=== PATIENT | female | born 1995 | race Caucasian/White ===

== ENCOUNTER 2017-03-13 20:09 | Emergency (ER) | payer BC ==
--- NOTE | ~2017-03-13 | CT4 ---
[facility] A Service of [facility] & [facility] RADIOLOGY TEXT RESULTS PATIENT: BRYANT HOPE LOCATION: SED : [birth year] UNIT #: [id number] AGE: [address]: LINDA GARCIA SEX: F ORDER DR: [id number] [address] [address] [id number] E MR#: [id number] Acc #: [id number] NAME: BRYANT HOPE : 1995 SEX: F STUDY DATE/TIME: 03/13/2017 21:48 UNIT: SED ROOM: STUDY DESCRIPTION: CT Abd and Pelv Wo Cont Attending Physician: Tony Garcia Ordering Physician: Tony Garcia Primary Care Physician: Jes Garza M.D. MEDICAL IMAGING REPORT This report is preliminary unless electronic signature is present. EXAM CT abdomen and pelvis, 03/13/2017. INDICATIONS Back spasms and abdominal pain for 1 week. Nausea. TECHNIQUE Axial noncontrast images were obtained through the abdomen and pelvis. Multiplanar reformats were obtained. Comparison is made with 11/06/12. This CT exam was performed with one or more of the following radiation dose reduction techniques: automatic exposure control, adjustment of mA and/or kV according to patient size, and iterative reconstruction. FINDINGS ABDOMEN: Lung bases are clear. Gallbladder is contracted. No renal or ureteral stones are seen. No hydronephrosis. Unenhanced solid organs are normal. The unopacified GI tract is normal. There is no free fluid. PELVIS: There are no lower ureteral stones. The bladder is normal. Solid pelvic organs are normal. The appendix is normal, as is the remainder of the unopacified GI tract. IMPRESSION 1. No acute findings in the abdomen or pelvis 2. No renal or ureteral stones. No hydronephrosis. 3. Normal unopacified GI tract, including the appendix. Dictated by... Matthew Fuentes Jr., M.D. THIS IS AN ELECTRONICALLY VERIFIED REPORT Matthew Fuentes Jr., M.D. at 03/14/2017 10:14 AM [facility] A Service of [facility] & [facility] RADIOLOGY TEXT RESULTS PATIENT: BRYANT HOPE LOCATION: SED : [birth year] UNIT #: [id number] AGE: [address]: LINDA GARCIA SEX: F ORDER DR: Sonia TD: 03/13/2017 22:52 JOB #: [id number] MEDICAL IMAGING REPORT Page 1 of 1
[~2017-03-13 20:09] MED LIST: ACETAMINOPHEN; BACTRIM DS TABL1 TA1 PO; HYDROCODON-ACE1 EAC7 PO; NO MEDICATIONS; PRENATAL1 TA1 PO; ZOFRAN PO
[2017-03-13] MEDS ORDERED: BIRTH CONTROL PILL (20:29)
[2017-03-13 20:53] LABS: BASOPHIL# 0.1 X10e3 (0-0.3); BASOPHIL% 0.7 % (0-2.5); EOSINOPHIL# 0.2 X10e3 (0-0.7); EOSINOPHIL% 2.4 % (0.0-7.0); HEMATOCRIT 37.4 % (35.0-45.0); HEMOGLOBIN 12.2 gm/dL (12.0-16.0); LYMPHOCYTE# 2.2 X10e3 (1.0-3.5); LYMPHOCYTE% 32.4 % (17.0-45.0); MEAN CORPUSCULAR HEMOGLOBIN 26.9 PG (28-34); MEAN CORPUSCULAR HGB CONC 32.8 g/dL (30-36); MEAN PLATELET VOLUME 8.8 FL (6.5-11.5); MONOCYTE# 0.6 X10e3 (0-1.0); MONOCYTE% 8.8 % (3.0-12.0); NEUTROPHIL# 3.8 X10e3 (1.5-7.1); NEUTROPHIL% 55.7 % (40-75); PLATELET COUNT 279 X10e3 (140-420); RED BLOOD COUNT 4.56 X10e (3.90-5.30); RED CELL DISTRIBUTION WIDTH 14.6 % (11.0-15.5); WHITE BLOOD COUNT 6.9 X10e3 (4.0-10.5)
[2017-03-13 20:54] LABS: DIFF IND NO
[2017-03-13 21:24] LABS: ALBUMIN SERUM 3.3 g/dL (3.5-5.0); ALKALINE PHOSPHATASE 59 U/L (32-92); ALT (SGPT) 17 U/L (10-40); AST (SGOT) 20 U/L (10-42); BILIRUBIN, DIRECT <0.1 mg/dL (0.0-0.2); BILIRUBIN,TOTAL <0.1 mg/dL (0.2-2.0); BLOOD UREA NITROGEN 6 mg/dL (9-23); BUN/CREATININE RATIO 8.57; CALCIUM SERUM 8.7 mg/dL (8.4-10.2); CARBON DIOXIDE 25 mmol/L (22-31); CHLORIDE 106 mmol/L (100-111); CREATININE SERUM 0.7 mg/dL (0.6-1.4); GLOM FILT RATE Estimated 122.1 mL/min (>60); GLUCOSE FASTING 91 mg/dL (70-110); LIPASE 38 U/L (22-51); POTASSIUM 3.8 mmol/L (3.5-5.1); PROTEIN TOTAL SERUM 6.9 g/dL (6.0-8.3); SODIUM 136 mmol/L (135-145)
[2017-03-13 21:35] LABS: URINE SOURCE CLEAN CATCH
[2017-03-13 21:38] LABS: URINE APPEARANCE CLEAR; URINE BILIRUBIN NEG (NEG); URINE BLOOD NEG (NEG); URINE COLOR YELLOW; URINE GLUCOSE NEG (NORM); URINE KETONE NEG (NEG); URINE LEUKOCYTE ESTERASE NEG (NEG); URINE NITRATE NEG (NEG); URINE PROTEIN NEG (NEG); URINE UROBILINOGEN 0.2 MG/DL (NORM)
[2017-03-13 22:02] LABS: MICRO INDICATED? NO
== END 2017-03-13 22:25 | disposition home or self-care (01) ==
LOC: SED 20:09
PROVIDERS: Physician Assistant
DX: R10.13 Epigastric pain (principal); R11.0 Nausea
CPT/HCPCS: 36415; 74176; 80048; 80076; 81003; 83690; 84703; 85025; 96361; 96374; 99284; J2405

== ENCOUNTER 2017-06-11 22:23 | Emergency (ER) | payer BC ==
[~2017-06-11] VITALS: Ht 165.1 cm; Wt 75.7 kg
[~2017-06-11 22:23] MED LIST changes: +BIRTH CONTROL PILL
== END 2017-06-11 23:35 | disposition home or self-care (01) ==
LOC: SED 22:23
DX: K21.9 Gastro-esophageal reflux disease without esophagitis (principal)
CPT/HCPCS: 84703; 99284

== ENCOUNTER 2017-06-12 22:38 | Emergency (ER) | payer BC ==
[~2017-06-12] VITALS: Ht 165.1 cm; Wt 75.7 kg
[2017-06-12 23:19] LABS: BASOPHIL# 0.1 X10e3 (0-0.3); BASOPHIL% 0.7 % (0-2.5); DIFF IND NO; EOSINOPHIL# 0.1 X10e3 (0-0.7); HEMATOCRIT 35.6 % (35.0-45.0); HEMOGLOBIN 11.7 gm/dL (12.0-16.0); LYMPHOCYTE# 2.4 X10e3 (1.0-3.5); LYMPHOCYTE% 24.1 % (17.0-45.0); MEAN CELL VOLUME 85.2 FL (83-96); MEAN CORPUSCULAR HEMOGLOBIN 27.9 PG (28-34); MEAN CORPUSCULAR HGB CONC 32.8 g/dL (30-36); MONOCYTE# 0.6 X10e3 (0-1.0); NEUTROPHIL# 6.7 X10e3 (1.5-7.1); NEUTROPHIL% 68.2 % (40-75); PLATELET COUNT 247 X10e3 (140-420); RED BLOOD COUNT 4.18 X10e (3.90-5.30); RED CELL DISTRIBUTION WIDTH 15.3 % (11.0-15.5); WHITE BLOOD COUNT 9.8 X10e3 (4.0-10.5)
[2017-06-12 23:38] LABS: ALBUMIN SERUM 3.4 g/dL (3.5-5.0); ALKALINE PHOSPHATASE 56 U/L (32-92); ALT (SGPT) 33 U/L (10-40); AMYLASE 37 U/L (0-46); AST (SGOT) 24 U/L (10-42); BILIRUBIN,TOTAL 0.3 mg/dL (0.2-2.0); BLOOD UREA NITROGEN 11 mg/dL (9-23); BUN/CREATININE RATIO 15.71; CALCIUM SERUM 8.6 mg/dL (8.4-10.2); CARBON DIOXIDE 25 mmol/L (22-31); CHLORIDE 104 mmol/L (100-111); CREATININE SERUM 0.7 mg/dL (0.6-1.4); GLOM FILT RATE Estimated 122.1 mL/min (>60); GLUCOSE FASTING 120 mg/dL (70-110); LIPASE 35 U/L (22-51); POTASSIUM 3.8 mmol/L (3.5-5.1); PROTEIN TOTAL SERUM 6.7 g/dL (6.0-8.3); SODIUM 135 mmol/L (135-145)
[2017-06-12 23:47] LABS: BILIRUBIN, DIRECT <0.1 mg/dL (0.0-0.2); BILIRUBIN,INDIRECT 0.2 mg/dL (0.0-0.9)
== END 2017-06-13 00:49 | disposition home or self-care (01) ==
LOC: SED 22:38
PROVIDERS: Emergency Medicine
DX: R10.13 Epigastric pain (principal)
CPT/HCPCS: 36415; 80048; 80076; 82150; 83690; 85025; 96374; 99284

== ENCOUNTER → 2017-06-27 | Outpatient (CLI) | payer BC ==
--- NOTE | ~2017-06-27 | US6 ---
[facility] A Service of [facility] & [facility] RADIOLOGY TEXT RESULTS PATIENT: BRYANT HOPE LOCATION: [facility] : [birth year] UNIT #: [id number] AGE: [address]: Jes Garza MD SEX: F ORDER DR: [id number] [address] [address] [id number] O MR#: [id number] Acc #: [id number] NAME: BRYANT HOPE : 1995 SEX: F STUDY DATE/TIME: 06/27/2017 9:49 UNIT: [facility] ROOM: STUDY DESCRIPTION: US Abdominal Limited Attending Physician: Jes Garza M.D. Referring Physician: Jes Garza M.D. Ordering Physician: Jes Garza M.D. Primary Care Physician: Jes Garza M.D. MEDICAL IMAGING REPORT This report is preliminary unless electronic signature is present. EXAM Right upper quadrant ultrasound, 06/27/17. HISTORY Right upper quadrant abdominal pain for 3 months with nausea and vomiting beginning 1 week ago. FINDINGS Ultrasound examination of the gallbladder is negative. There is no cholelithiasis, gallbladder wall thickening, or bile duct dilatation. The visualized liver is negative. IMPRESSION Negative gallbladder ultrasound examination. Dictated by... Zoltan Monaco M.D. THIS IS AN ELECTRONICALLY VERIFIED REPORT Zoltan Monaco M.D. at 06/27/2017 3:48 PM KRT/ashanti TD: 06/27/2017 13:48 JOB #: [id number] MEDICAL IMAGING REPORT Page 1 of 1
== END | disposition home or self-care (01) ==
LOC: SGUS 08:04
DX: R10.9 Unspecified abdominal pain (principal)
CPT/HCPCS: 76705